=== PATIENT | male | born 1935 | race Caucasian/White ===

== ENCOUNTER 2023-12-07 02:06 | Observation (INO) | payer MEDICARE, OTHER, SELFPAY ==
[2023-12-06 23:22] VITALS: BP 143/112
[2023-12-06 23:30] VITALS: BMI 22.7
--- NOTE | 2023-12-06 23:34 | ED.GENMED ---
History of Present Illness
General
Chief Complaint: Breathing Problem
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
Exam Limitations: dementia (Dementia making it difficult to translate)
Time Seen by Provider: 12/06/23 23:21
Nursing documentation reviewed up to this point in time: agreed with except
Travel History
Have you had any contact with someone who has COVID-19?: No
Do you have any symptoms of coronavirus? Fever > 100 degrees, chills, cough, shortness of breath, sore throat, loss of taste or smell, muscle aches, or headache?: No
History of Present Illness
History of Present Illness:
88-year-old male with shortness of breath, wheezing, history of emphysema and asthma, with dementia and Honduran-speaking only. No fevers. Yellow sputum coughing up in emergency department room.
Past History
Past History
ED Past Medical History: Asthma, HTN and Other (Dementia, bph, )
ED Past Surgical History: Other (Unknown)
Social History
Tobacco: Non-smoker
Alcohol: None
Drug: None
Review of Systems
Review of Systems
Allergies reviewed?: Yes
Unable to obtain full review of systems at this time due to: dementia
All Other Systems: Not applicable
Constitutional: Reports no symptoms; Denies fever or chills
Respiratory: Reports cough and trouble breathing
Phy Exam
Physical Exam
Physical Exam:
Physical Exam
General: Moderate respiratory distress, afebrile
Neck: supple. no meningeal signs. normal posterior pharynx
Heart: s1/s2 regular rate and rhythm, no murmur. equal radial
pulses.
HEENT: Pupils equal round reactive to light, EOMI
Lungs: Moderate respiratory distress. Wheezing bilaterally, cough productive of yellow sputum
Abdomen: normal bowel sounds. not tender. no CVAT
Neuro: alert and oriented to person. no focal neurological deficits cranial nerves II through XII intact
Skin: no rash
Psychiatric: well kept. interactive and cooperative
Extremities: no edema. no calf tenderness. negative homans. good distal pulses
Scores
Heart Failure Risk
Heart Failure Risk Score: Not Applicable
Course
Orders/Labs/Results
Orders:
Orders
12/06/23 23:33
Electrocardiogram (*1) Stat
Reason for Study: Other
Other Reason for Exam: pneumonia
Cardiac Monitoring- Treatment ONCE
EKG- Treatment ONCE
IV Insert/Care/Rem.- Treatment PRN
Dexamethasone Sod Phosphate [Decadron] 10 mg IV NOW STA
Ipratropium/Albuterol Sulfate [Duoneb] 3 ml INH R NOW STA
Pulse Ox/cont/shift [RESP] Stat
Quantity: 1
12/06/23 23:34
CR Chest - 2 Views Urgent
Comment:
Reason For Exam: short of breath
12/06/23 23:37
Complete Blood Count/With Diff Urgent
Comprehensive Metabolic Panel Urgent
Lactic Acid Q4H
Comment: CANCEL 2nd LACTIC ACID IF 1st LACTIC ACID IS LESS THAN 2
NT-proBNP Urgent
Troponin I Urgent
Blood Culture Q30M
HOLLY Source: Blood/Venous
Specimen Description:
12/07/23 00:15
Blood Culture Q30M
HOLLY Source: Blood/Venous
Specimen Description:
12/07/23 01:00
Ipratropium/Albuterol Sulfate [Duoneb] 3 ml INH R NOW STA
12/07/23 03:45
Lactic Acid Q4H
Comment: CANCEL 2nd LACTIC ACID IF 1st LACTIC ACID IS LESS THAN 2
Abnormal Lab Results
12/06/23
23:37
RBC 4.39 L 10^6/uL
(4.70-6.10)
MCV 95.0 H fL
(80.0-94.0)
MCH 31.4 H pg
(27.0-31.0)
Neutrophils % 35.7 L %
(42.2-75.2)
Monocytes % 9.5 H %
(1.7-9.3)
Eosinophils % 8.4 H %
(0-6)
BUN 27 H mg/dl
(9-20)
12/06/23 23:37
12/06/23 23:37
Vital Signs
Initial and Last Documented VS:
Initial Vital Signs
Pulse Resp BP Pulse Ox
73 20 143/112 94
12/06/23 23:22 12/06/23 23:22 12/06/23 23:22 12/06/23 23:22
Last Documented Vital Signs
Pulse Resp BP Pulse Ox
96 20 129/85 92
12/07/23 01:45 12/07/23 01:45 12/07/23 01:00 12/07/23 01:45
MDM/Problems Addressed
Differential Diagnosis Includes:
Pneumonia, CHF exacerbation, COPD exacerbation
MDM/Problems Addressed:
88-year-old male with COPD exacerbation, no signs of CHF or pneumonia. Admit to hospitalist.
Chronic conditions affecting care: COPD and Other (Dementia)
Acute Exacerbation and/or Progression of Chronic Illness: COPD and Other (Dementia)
*Radiology
Radiology exam reviewed: preliminary read by ED provider (Chest x-ray shows no focal infiltrate)
*Pulse Oximetry
Patient hypoxic: yes
*EKG
Interpreted by ED Provider?: Yes
EKG Intrepretation Date: 12/07/23
EKG Intrepretation Time: 00:06
Interpretation: abnormal
Comparison EKG: no changes
Heart Rate: 82
Rate: normal
Rhythm: sinus
Dillon: normal axis
Interval: normal interval
QRS Pattern: left vent hypertrophy
Ischemia: no ischemia
*High Pressure Operator Interpretation
Rate: normal
Interpretation: normal
Heart Rate: 80
Rhythm: sinus
*Critical Care Note
Total Time (30-74mins, 75-104mins- exclusive of procedures): Not Applicable
Data Reviewed
Review of Other/Old Records Reveals: Radiology Studies (Prior chest x-ray on 09/15/2030 pneumonia)
Patient Management
Social determinants of health affecting care: Living situation
Discussion with other providers: Hospitalist
Escalation/DeEscalation of care consider admission/obs:
Admit indicated
ED Attending Note
-
Portions of this chart may have been created with voice recognition software.� Occasional wrong word or��sound alike� substitutions may have occurred due to the inherent limitations of voice recognition software.
Discharge Plan
Departure
Patient Disposition: Admit
Date of Disposition: 12/07/23
Time of Disposition: 01:01
Admit to: Telemetry
Presentation/result/management discussed w/ accepting MD/DO: Hospitalist
Patient with high blood pressure during this ER visit?: Yes
Condition: Fair
Discharge Problem:
Acute exacerbation of chronic obstructive pulmonary disease
Prescriptions:
No Action
acetaminophen [Tylenol] 325 mg Tablet
650 mg PO Q4HPRN PRN (Reason: mild pain,temp>100)
ipratropium-albuterol 0.5 mg-3 mg(2.5 mg base)/3 mL Solution For Nebulization
3 ml INHALATION R Q6HPRN PRN (Reason: sob or wheezing)
prednisolone acetate 1 % Drops,Suspension
1 drp BOTH EYES DAILY
tamsulosin 0.4 mg Capsule
0.4 mg PO DAILY
fluoxetine [Prozac] 10 mg Capsule
10 mg PO DAILY
montelukast 10 mg Tablet
10 mg PO HS
azelastine 137 mcg (0.1 %) Aerosol,[place]
2 spray INTRANASAL BID
Rx Instructions:
both nostrils
albuterol sulfate [Ventolin HFA] 90 mcg/actuation Hfa Aerosol Inhaler
2 puff INHALATION R Q6HPRN PRN (Reason: sob)
levocetirizine [Xyzal] 5 mg Tablet
5 mg PO QPM
Spiriva Respimat 1.25 mcg/actuation Mist
1 puff INHALATION R DAILY
mometasone 50 mcg/actuation spray,non-aerosol
2 spray INTRANASAL DAILY
mirtazapine [Remeron] 15 mg Tablet
15 mg PO HS
amoxicillin-pot clavulanate 875-125 mg tablet
1 tab PO BID Qty: 10 0RF
lorazepam [Ativan] 0.5 mg Tablet
0.5 mg PO BID Qty: 15 0RF
Referrals:
Freedom Manrique MD [Family Provider] -
Interventions
Interventions:
*Risk Screen - Suicide Last Done: 12/06/23 23:31
*General Assessment Last Done: 12/06/23 23:31
*Neglect/Abuse Screening Last Done: 12/06/23 23:31
*ED COVID-19 Vaccine History Last Done: 12/06/23 23:31
ED- Cardiac Assessment Last Done: 12/06/23 23:45
ED- Pulmonary Assessment Last Done: 12/06/23 23:45
[2023-12-06 23:52] LABS: % Basophils 0.6 % (0-2); % Eosinophils 8.4 % (0-6); % Immature Granulocytes 0.2 % (0-0.5); % Lymphocytes 45.6 % (20.5-51.1); % Monocytes 9.5 % (1.7-9.3); % Neutrophils 35.7 % (42.2-75.2); Absolute Eosinophils 0.5 10^3/uL (0-0.7); Absolute Lymphocytes 2.9 10^3/uL (1.2-3.4); Absolute Monocytes 0.6 10^3/uL (0.1-0.6); Absolute Neutrophils 2.3 10^3/uL (1.4-6.5); Hematocrit 41.7 % (39.0-52.0); Hemoglobin 13.8 g/dL (13.0-18.0); Mean Corp Hgb Conc. 33.1 g/dL (33.0-37.0); Mean Corpuscular Hgb 31.4 pg (27.0-31.0); Mean Platelet Volume 9.5 fL (7.4-10.4); Nucleated Red Blood Cells % 0 % (-); Platelet Count 145 10^3/uL (130-400); Red Blood Cell Count 4.39 10^6/uL (4.70-6.10); Red Cell Dist. Width 13.2 % (11.5-14.5); White Blood Cell Count 6.5 10^3/uL (4.8-10.8)
[2023-12-07 00:09] LABS: ALT (SGPT) 10 U/L (0-50); AST (SGOT) 23 U/L (17-59); Albumin 4.1 g/dl (3.5-5.0); Alkaline Phosphatase 80 U/L (38-126); Blood Urea Nitrogen 27 mg/dl (9-20); Calcium 8.7 mg/dl (8.4-10.2); Carbon Dioxide 30 mmol/L (22-30); Chloride 103 mmol/L (98-107); Estimated Creatinine Clearance 51 ml/min; Glucose 88 mg/dl (70-99); Potassium 4.1 mmol/L (3.5-5.1); Sodium 137 mmol/L (135-145); Total Bilirubin 0.6 mg/dl (0.2-1.3); Total Protein 7.3 g/dl (6.3-8.2); eGFR > 60.00
[2023-12-07 00:10] LABS: Lactic Acid 0.8 mmol/L (0.7-2.0)
[2023-12-07 00:17] LABS: NT-proBNP 37.7 pg/ml; Troponin I < 0.012 ng/ml
[2023-12-07 00:37] VITALS: BP 126/84
[2023-12-07] MEDS: DECADRON 10 MG IV (00:40)
[2023-12-07] MEDS: DUONEB 3 ML INH ×2 (00:40→01:05)
[2023-12-07 01:00] VITALS: BP 129/85
--- NOTE | 2023-12-07 01:34 | HPS.HSE ---
Family Physician
-
Family Physician: Freedom Manrique MD
Chief Complaint
-
SOB
History of Present Illness
88 y/o M with PMHx:
CAD
Asthma
COPD
Advanced dementia, likely Alzheimer's type
Anxiety
Depression
BPH
who presents from [place] with SOB.
Medical History
Past Medical History
Past Medical History: Reports Other (as per HPI)
Past Surgical History: Reports Other (N/A)
Social History
Tobacco: Non-smoker
Alcohol: None
Drug: None
Family History
Family History: Not pertinent
Allergies / Home Medications
Allergies reflects when Allergies were last updated in [facility].
Home Medications with original date entered in [facility]
Allergy/Medication List:
Allergies
Allergy/AdvReac Type Severity Reaction Status Date / Time
No Known Allergies Allergy Verified 09/13/23 17:19
Home Medications
acetaminophen 325 mg tablet (Tylenol) 650 mg PO Q4HPRN PRN mild pain,temp>100 07/25/22
albuterol sulfate 90 mcg/actuation aerosol inhaler (Ventolin HFA) 2 puff inhalation R Q6HPRN PRN sob 07/25/22
azelastine 137 mcg (0.1 %) nasal spray aerosol 2 spray intranasal BID Allergies 07/25/22
fluoxetine 10 mg capsule (Prozac) 10 mg PO DAILY Mental Health/Anxiety 07/25/22
ipratropium 0.5 mg-albuterol 3 mg (2.5 mg base)/3 mL nebulization soln 3 ml inhalation R Q6HPRN PRN sob or wheezing 07/25/22
levocetirizine 5 mg tablet (Xyzal) 5 mg PO QPM Allergies 07/25/22
montelukast 10 mg tablet 10 mg PO HS asthma 07/25/22
prednisolone acetate 1 % eye drops,suspension 1 drp BOTH EYES DAILY inflammation 07/25/22
tamsulosin 0.4 mg capsule 0.4 mg PO DAILY benign prostatic hyperplasia 07/25/22
tiotropium bromide 1.25 mcg/actuation mist for inhalation (Spiriva Respimat) 1 puff inhalation R DAILY asthma 07/25/22
mometasone 50 mcg/actuation nasal spray 2 spray intranasal DAILY Allergies 08/20/22
mirtazapine 15 mg tablet (Remeron) 15 mg PO HS Mental Health/Anxiety 09/13/23
amoxicillin 875 mg-potassium clavulanate 125 mg tablet 1 tab PO BID #10 tabs 09/17/23
lorazepam 0.5 mg tablet (Ativan) 0.5 mg PO BID Mental Health/Anxiety #15 tabs 09/17/23
Review of Systems
-
Unable to obtain full review of systems at this time due to: Dementia
Physical Exam
Vital Signs
Vital Signs
Pulse Resp BP Pulse Ox
77 19 143/112 94
12/06/23 23:45 12/06/23 23:45 12/06/23 23:22 12/06/23 23:31
Physical Exam
General: Other (.)
Laboratory Results
-
12/06/23 23:37
12/06/23 23:37
Laboratory Results
Lactic Acid 0.8 mmol/L (0.7-2.0) 12/06/23 23:37
Total Bilirubin 0.6 mg/dl (0.2-1.3) 12/06/23 23:37
AST 23 U/L (17-59) 12/06/23 23:37
ALT 10 U/L (0-50) 12/06/23 23:37
Alkaline Phosphatase 80 U/L (38-126) 12/06/23 23:37
Troponin I < 0.012 ng/ml 12/06/23 23:37
Impression/Plan
-
Gen: NAD, Awake and alert
Eyes: EOMI, no scleral icterus.
Neck: supple.
CV: RRR, +S1/S2, no m/r/g.
Resp: CTAB, no rales, wheezes, or rhonchi.
Abd: +BS, soft, NT, ND
Skin: No rashes.
Neuro: CN 2-12 intact, non-focal.
Psych: Normal mood and affect.
CXR (read by me, official read pending): Hyperinflated lungs, no consolidation
SOB:
-At the time of my evaluation the patient does not appear short of breath. He is not hypoxemic. He has difficulty following instructions due to language barrier and dementia but upon normal tidal volumes no wheezes are heard.
-Doubt acute COPD or asthma exacerbation
-In reviewing the medical record the patient does have his history of aspiration. NPO (except meds)/speech eval.
-support with IVFs while NPO
-cont Spiriva/Mometasone/Singulair
-duonebs PRN
Other problems:
CAD
Advanced dementia, likely Alzheimer's type
Anxiety: cont Ativan
Depression: cont Prozac
BPH: cont Flomax
DNR as per record review from last admission. No records sent from [place] and I cannot reach family on the phone so will default to full code until family can be reached.
Lovenox
OBS
[2023-12-07 02:00] VITALS: BP 100/61
[2023-12-07 03:02] VITALS: BMI 22.4
[2023-12-07 03:03] VITALS: BP 146/80
[2023-12-07] MEDS: NSS 1000 IV (03:19)
[2023-12-07 07:17] VITALS: BP 126/84
[2023-12-07] MEDS: SPIRIVA RESPIMAT 2.5 MCG 1 PUFF INH (08:32)
--- NOTE | 2023-12-07 08:39 | W.PN.HOSP.TC ---
Addendum entered and electronically signed by Deepti Irwin MD 12/07/23 15:17:
Total DC time 40 minutes
Original Note:
Today's Communication/Plan
-
see A/P
Assessment / Plan
Assessment / Plan
88 y/o M with PMHx CAD, Asthma, COPD, Advanced dementia likely Alzheimer's type, Anxiety/Depression, BPH; presented from [place] with SOB.
A/P:
# SOB, possibly related to aspiration
He is not hypoxemic.�He has difficulty following instructions due to language barrier and dementia
Exam without wheezes or crackles
pending CXR formal report
check procal to r/o bacterial pneumonia
Doubt acute COPD or asthma exacerbation
The patient does have his history of aspiration.
NPO for now (except meds) and speech eval.
support with IVFs while NPO
cont Spiriva/Mometasone/Singulair
duonebs PRN
Other problems:
# CAD
# Advanced dementia, likely Alzheimer's type
# Anxiety: cont Ativan
# Depression: cont Prozac
# BPH: cont Flomax
DNR DNI confirmed with daughter
DVT ppx: Lovenox SQ
OBS
PT OT eval
DW RN
updated daughter on the phone
Anticipated Discharge: 24 - 48 hours
Subjective/Interval History
-
Date of Service: December 07, 2023
Objective Data
-
Labs:
Laboratory Results
12/06/23
23:37
WBC 6.5
Hgb 13.8
Hct 41.7
Plt Count 145
Sodium 137
Potassium 4.1
Chloride 103
Carbon Dioxide 30
BUN 27 H
Creatinine 1.0
Glucose 88
Calcium 8.7
Total Bilirubin 0.6
AST 23
ALT 10
Alkaline Phosphatase 80
Vital Signs:
Vital Signs
Temp Pulse Resp BP Pulse Ox
36.4 C 80 16 146/80 97
12/07/23 04:16 12/07/23 03:03 12/07/23 03:03 12/07/23 03:03 12/07/23 04:17
Review of Systems
-
Unable to obtain full review of systems at this time due to: Dementia
Physical Exam
-
General: Well Developed, No Apparent Distress and Comfortable
HEENT: Normocephalic and Atraumatic
Respiratory: Clear to Auscultation and Non Labored Respirations; Negative Wheezes or Accessory Resp Muscle Use
Cardiac: Regular Rhythm and S1/S2
GI: Soft, Nontender, Nondistended and Normal Bowel Sounds
Rectal: Deferred by Provider
Musculoskeletal: No Clubbing, No Cyanosis and No Edema
Skin: Negative Rash
Neuro: Awake
Psych: Calm and Apparent Dementia
Data Reviewed
-
Diagnostic Radiology: Image personally visualized and interpreted
Labs: Labs Reviewed by me
[2023-12-07] MEDS: ATIVAN 0.5 MG PO (10:13)
[2023-12-07 10:14] LABS: Procalcitonin < 0.05 ng/ml (0.0-0.25)
[2023-12-07] MEDS: PROZAC 10 MG PO (10:14)
[2023-12-07] MEDS: PRED FORTE 1% EYE DROPS 1 DROP BOTH EYES (10:16)
[2023-12-07] MEDS: FLOMAX 0.400000000000000022 MG PO (10:16)
--- NOTE | 2023-12-07 10:49 | PTOTSP ---
Pt has end-stage Alzheimer's disease, is Singaporean-speaking, blind and 'bedrest' at LTC facility. Language line not effective per RN. Pt not appropriate for PT. Will sign off. RN aware.
--- NOTE | 2023-12-07 11:08 | PTOTSP ---
pt currently requires assistance with simple ADLs, functional transfers, ambulation due to low vision and dementia. pt in an unfamiliar environment, though is able to let staff know basic needs. pt speaks mostly Chadian, understands a few phrases in
Montenegrin. no acute OT needs identified, will sign off.
--- NOTE | 2023-12-07 11:25 | PTOTSP ---
ST Dysphagia Evaluation
Moderate oral and suspected pharyngeal dysphagia; overt s/sx of aspiration with thin liquid trials +nasal regurgitation
Pt received awake/alert responsive when his name was called. HOB raised upright for PO trials of puree, mildly-thick liquids and thin liquids. Thin liquids by straw and cup sip +nasal regurgitation and prolonged/effortful coughing after swallow
suspect it precipitated into subsequent trials. Puree by tsp adequate oral access/containment and bolus was orally cleared. Mildly-thick liquids by small/single cup sip pt implemented oral swish prior to bolus transfers/swallow. No further overt
s/sx of aspiration observed with repeated trials of puree and mildly-thick liquids by cup sip.
Recommend
1. Puree (L4) and Mildly-thick liquids (L2) - No straws
2. Aspiration precautions and meal set up assist with feeding assist as needed 2' confusion
3. Small bites, small/single sips from cup, no straws, and slow rate.
4. Crush meds into apple sauce
5. GUEST SERVICE HOST following; monitor diet tolerance, determine if further objective testing indiciated.
Spoke w/ RN and chat to re: eval findings and recommendations.
--- NOTE | 2023-12-07 13:35 | CM ---
Reviewed the chart notes and spoke with the patient's daughter via telephone. Patient confused and speaks only Swazi. PEÑA letter explained to the daughter and a copy left with the patient's belongs in the room. The daughter had no questions
withe regards to the letter.
The patient resides as a apartment maintenance resident of [facility]. He is being discharged today back to facility.
Plan: Discharge back to [facility] today.
Call Report: [phone]
Fax Report: [phone]
Medical and transport forms on chart.
--- NOTE | 2023-12-07 15:07 | W.DCSUMMARY ---
Discharge Summary
Discharge Data
Date of Admission: 12/07/23
Date of Discharge: 12/07/23
-
Pending Results: No
Hospital Course
Principal Diagnosis:
Aspiration without pneumonia
Chronic Diagnoses:�
Coronary artery disease
Asthma
Chronic obstructive pulmonary disease
Advanced dementia likely Alzheimer's type
Anxiety/Depression
Benign prostate hypertrophy
Consultations:�
None
Procedures:�
None
Clinical course:�
This is a 88-year-old male with past medical history as stated above, who [facility] with shortness of [facility] (SOB).
Problem 1:
SOB, likely related to aspiration.
He was not hypoxic.
His pulmonary exam was unrevealing: no wheezing or crackles.
His CXR this admission noted near complete resolution of previously seen right upper lung consolidation.
His procalcitonin was negative, which ruled out bacterial pneumonia.
He was seen by speech and was started with pur�ed diet with�mildly-thick liquids, which he can continue going forward.
[facility].
As for the rest of his medical problems, they were stable during his hospital stay.
Discharge Plan
-
Patient Disposition: Home with Home Care
Discharge Diagnosis/Procedures: Shortness of breath likely due to aspiration (without pneumonia); Advanced dementia likely Alzheimer's type
Condition: Fair
Diet: As tolerated and Other diet
Additional Diets: Pur�ed diet with Mildly-thick liquids (nectar thickened), supervised feeding with aspiration precaution
Activity: As tolerated
Driving Restrictions: No driving
Referrals:
Freedom Manrique MD [Family Provider] - in less than 1 week
Prescriptions:
Continued
acetaminophen [Tylenol] 325 mg Tablet
650 mg PO Q4HPRN PRN (Reason: mild pain,temp>100)
ipratropium-albuterol 0.5 mg-3 mg(2.5 mg base)/3 mL Solution For Nebulization
3 ml INHALATION R Q6HPRN PRN (Reason: sob or wheezing)
prednisolone acetate 1 % Drops,Suspension
1 drp BOTH EYES DAILY
tamsulosin 0.4 mg Capsule
0.4 mg PO DAILY
fluoxetine [Prozac] 10 mg Capsule
10 mg PO DAILY
montelukast 10 mg Tablet
10 mg PO HS
azelastine 137 mcg (0.1 %) Aerosol,[place]
2 spray INTRANASAL BID
Rx Instructions:
both nostrils
albuterol sulfate [Ventolin HFA] 90 mcg/actuation Hfa Aerosol Inhaler
2 puff INHALATION R Q6HPRN PRN (Reason: sob)
levocetirizine [Xyzal] 5 mg Tablet
5 mg PO QPM
Spiriva Respimat 1.25 mcg/actuation Mist
1 puff INHALATION R DAILY
mometasone 50 mcg/actuation spray,non-aerosol
2 spray INTRANASAL DAILY
mirtazapine [Remeron] 15 mg Tablet
15 mg PO HS
lorazepam [Ativan] 0.5 mg Tablet
0.5 mg PO BID Qty: 2 0RF
Discontinued
amoxicillin-pot clavulanate 875-125 mg tablet
1 tab PO BID Qty: 10 0RF
Discharge Orders:
Discharge Patient (As Directed); Ordered 12/07/23
Ordered By: Deepti Irwin
[2023-12-07 15:11] VITALS: BP 119/80
[2023-12-07] MEDS: NSS IV (17:35)
== END 2023-12-07 18:24 ==
LOC: 2 NORTH 02:06
PROVIDERS: ADMITTING PHYSICIAN Internal Medicine; ATTENDING PHYSICIAN Internal Medicine; EMERGENCY PHYSICIAN Emergency Medicine; FAMILY PHYSICIAN Internal Medicine
DX: T17.990A Other foreign object in respiratory tract, part unspecified in causing asphyxiation, initial encounter (principal); W44.F9XA Other object of natural or organic material, entering into or through a natural orifice, initial encounter; I25.10 Atherosclerotic heart disease of native coronary artery without angina pectoris; N40.0 Benign prostatic hyperplasia without lower urinary tract symptoms; J43.9 Emphysema, unspecified; F03.93 Unspecified dementia, unspecified severity, with mood disturbance; F03.94 Unspecified dementia, unspecified severity, with anxiety; F32.A Depression, unspecified; I10 Essential (primary) hypertension; Z66 Do not resuscitate; Z79.51 Long term (current) use of inhaled steroids; Z79.899 Other long term (current) drug therapy
CPT/HCPCS: 71046; 80053; 83605; 83880; 84145; 84484; 85025; 87040; 87070; 92610; 93005; 94640; 96374; 97166; 99285; G0378